=== PATIENT | female | born 1955 | race Caucasian/White ===

== ENCOUNTER 2017-01-05 13:02 | Day surgery (SDC) | payer OTHER ==
[~2017-01-05] VITALS: Ht 152.4 cm; Wt 81.3 kg
[~2017-01-05 13:02] MED LIST: ADULT LOW DOSE81 MG PO; ASPIRIN EC81 MG PO; LEVOTHYROXINE100 MCG PO; LOVASTATIN40 MG PO; MELOXICAM15 MG PO
--- NOTE | 2017-01-05 15:34 | NUR ---
01/05/17 1534 Marilynn Alejandro 1528 - PT ARRIVED TO RECOVERY ROOM. PIV IN LEFT HAND, WNL, INFUSING LR. PT MAINTAINING OWN AIRWAY, RESPONDING TO QUESTIONS APPROPRIATLY, AND DENIES PAIN AND NAUSEA.
--- NOTE | 2017-02-13 07:48 | OR ---
[facility] [address], [place] [address] Signed DATE OF PROCEDURE: 01/05/17 PREOPERATIVE DIAGNOSES History of rectal bleeding last in July 2016. No evidence of family history of colon cancer. POSTOPERATIVE DIAGNOSIS Scattered diverticulitis, sigmoid; otherwise, normal colon. PROCEDURE: Total colonoscopy to cecum. SURGEON: Domenica Anthony M.D. ANESTHESIA: Intravenous sedation: Fentanyl 100 mcg, Versed 6 mg. INDICATION This 61-year-old white woman is a patient of Dr. Koehler and had episodes of rectal bleeding in 2015. She was a no-show for follow-up colonoscopy plan. She was generally symptom-free, though she had bleeding several months ago in July. This was not associated with pain. She has no family history of colon cancer. She is admitted at this time to undergo colonoscopy on the basis of her episodic rectal bleeding. Understands the risks of bleeding, infection, and perforation related to colonoscopy. Understands that she wished to proceed. FINDINGS The prep was good. Complete colonoscopy was undertaken to the cecum. There were a few scattered diverticula, but no other abnormalities and certainly no sign of colitis, cancer, polyps, or bleeding itself. PROCEDURE IN DETAIL The patient was brought to the endoscopy suite and placed in the lateral decubitus position. Given intravenous sedation to the point of slurred speech and nystagmus. Digital rectal examination was normal. An Olympus video colonoscope was passed in the rectum and manipulated throughout the colon, ultimately intubating the cecum itself. The ileocecal valve and appendiceal orifice were normal. The scope was withdrawn from that point. Examination throughout was undertaken showing no sign of abnormality other than a few diverticula of the left colon. Retroflexed view in the rectum confirmed hypertrophied anal papilla, which would not account for the bleed ing she has had. The scope was removed and the patient was taken to recovery room in good condition. Electronically Signed By: DOMENICA ANTHONY MD 02/13/17 0748 PATIENT NAME: MARICEL GEORGE OPERATIVE REPORT DATE OF : 59 PHYSICIAN: DOMENICA ANTHONY MD REPORT #: [id number] REPORT IS CONFIDENTIAL AND NOT TO BE RELEASED WITHOUT AUTHORIZATION [facility] [address], [place] [address] Signed CONCLUDING DIAGNOSES A few scattered diverticula and asymptomatic anal hypertrophied anal papilla. PLAN Recommend repeat colonoscopy in 10 years. Recommend high-fiber diet. She will return to the ongoing care of Dr. Koehler. MD CASSANDRA Dickens/Ariel /[id number] cc: Pool Koehler DO Electronically Signed By: DOMENICA ANTHONY MD 02/13/17 0748 PATIENT NAME: MARICEL GEORGE OPERATIVE REPORT DATE OF : 59 PHYSICIAN: DOMENICA ANTHONY MD REPORT #: [id number] REPORT IS CONFIDENTIAL AND NOT TO BE RELEASED WITHOUT AUTHORIZATION
== END 2017-01-05 16:00 | disposition home or self-care (01) ==
LOC: OPS 13:02 → DS 14:00 → OPS 14:00
PROVIDERS: Surgery
PROC: 0DJD8ZZ Inspection of Lower Intestinal Tract, Via Natural or Artificial Opening Endoscopic (ICD-10-PCS; principal; 2017-01-05 14:00)
DX: Z12.11 Encounter for screening for malignant neoplasm of colon (principal); K57.32 Diverticulitis of large intestine without perforation or abscess without bleeding; J45.909 Unspecified asthma, uncomplicated; E03.9 Hypothyroidism, unspecified; Z88.2 Allergy status to sulfonamides; Z98.890 Other specified postprocedural states
CPT/HCPCS: 99152; 99153; J2250; J3010

== ENCOUNTER 2017-11-22 21:56 | Emergency (ER) | payer BC, OTHER ==
[~2017-11-22] VITALS: Ht 152.4 cm; Wt 81.3 kg
[2017-11-22] MEDS ORDERED: ULTRAM50 MG PO (22:12)
[2017-11-22] MEDS ORDERED: CYCLOBENZAPRINE10 MG (22:13)
[2017-11-22] MEDS ORDERED: NORCO 5-325 TA1 EACH PO (23:17)
== END 2017-11-22 23:28 | disposition home or self-care (01) ==
LOC: ED 21:56
DX: S83.91XA Sprain of unspecified site of right knee, initial encounter (principal); S30.0XXA Contusion of lower back and pelvis, initial encounter; E03.9 Hypothyroidism, unspecified; Z88.2 Allergy status to sulfonamides; Z79.899 Other long term (current) drug therapy; Z79.82 Long term (current) use of aspirin; V80.010A Animal-rider injured by fall from or being thrown from horse in noncollision accident, initial encounter
CPT/HCPCS: 73502; 73560; 99283

== ENCOUNTER 2021-05-14 04:53 | Emergency (ER) | payer OTHER ==
[~2021-05-14] VITALS: Ht 152.4 cm; Wt 81.3 kg
[~2021-05-14 04:53] MED LIST changes: +CYCLOBENZAPRINE10 MG; +NORCO 5-325 TA1 EACH PO; +ULTRAM50 MG PO
[2021-05-14] MEDS ORDERED: CYCLOBENZAPRINE10 MG PO (05:51)
--- NOTE | 2021-05-16 18:51 | EKG ---
[facility] [address] [facility] [place] [address] Signed Normal sinus rhythm Normal ECG When compared with ECG of 16-APR-2016 00:48, No significant change was found Confirmed by NO ODOM MD ([id number]) on 05/16/2021 6:51:26 PM Electronically Signed By: NO ODOM MD 05/16/211850 PATIENT NAME: MARICEL GEORGE BUSTAMANTE Electrocardiogram DATE OF : 59 PHYSICIAN: NO ODOM MD REPORT #: [id number] REPORT IS CONFIDENTIAL AND NOT TO BE RELEASED WITHOUT AUTHORIZATION
== END 2021-05-14 06:23 | disposition home or self-care (01) ==
LOC: ED 04:53
DX: R07.89 Other chest pain (principal); E86.0 Dehydration; E03.9 Hypothyroidism, unspecified; M19.90 Unspecified osteoarthritis, unspecified site; E78.00 Pure hypercholesterolemia, unspecified; I10 Essential (primary) hypertension; Z88.2 Allergy status to sulfonamides; Z79.82 Long term (current) use of aspirin
CPT/HCPCS: 36415; 71045; 80053; 83735; 84484; 85025; 85610; 93005; 93010; 99285-25; J7030

== ENCOUNTER 2024-08-31 08:47 | Emergency (ER) | payer OTHER ==
[~2024-08-31] VITALS: Ht 152.4 cm; Wt 83.1 kg
[~2024-08-31 08:47] MED LIST changes: +CYCLOBENZAPRINE10 MG PO
[2024-08-31] MEDS ORDERED: LISINOPRIL5 MG PO (09:02)
[2024-08-31] MEDS ORDERED: FINASTERIDE5 MG PO (09:02)
[2024-08-31] MEDS ORDERED: GABAPENTIN300 MG PO (09:02)
[2024-08-31 10:21] LABS: BASOPHILS 0.2 % (0.1-1.2); EOSINOPHILS 0.9 % (0.7-5.8); HEMATOCRIT 35.5 % (34.1-44.9); HEMOGLOBIN 11.7 g/dL (11.2-15.7); LYMPHOCYTES 14.2 % (19.3-51.7); MCH 30.2 PG (25.6-32.2); MCV 91.5 fL (79.4-94.8); MONOCYTES 9.6 % (4.7-12.5); NEUTROPHILS 74.1 % (34.0-71.1); PLATELET COUNT 297 K/uL (182-369); RBC 3.88 M/uL (3.93-5.22)
[2024-08-31 10:39] LABS: ALBUMIN 3.3 g/dL (3.4-5.0); ALBUMIN/GLOBULIN RATIO 0.92 (1.1-2.4); ANION GAP 9.9 (7-21); BILIRUBIN, TOTAL 0.6 mg/dL (0.2-1.0); BUN/CREATININE RATIO 16.66 (6.0-28.6); CALCIUM 8.9 mg/dL (8.5-10.1); CREATININE, SERUM 1.56 mg/dL (0.55-1.02); POTASSIUM 4.9 mmol/L (3.5-5.1); PROTEIN, TOTAL 6.9 g/dL (6.4-8.2)
[2024-08-31 11:26] LABS: BILIRUBIN, URINE NEGATIVE (negative); BLOOD/HGB, URINE NEGATIVE (Negative); KETONE, URINE NEGATIVE (Negative); LEUK ESTERASE, URINE NEGATIVE (negative); NITRITE, URINE NEGATIVE (negative)
[2024-08-31] MEDS ORDERED: PERCOCET 5-3251 EACH PO (12:25)
[2024-08-31] MEDS ORDERED: ONDANSETRON 4 MG TAB ODT SL ONE (12:30)
[2024-08-31] MEDS ORDERED: OXYCODONE HCL 5 MG TAB PO ONE (12:30)
[2024-08-31 12:45] VITALS: BP 141/7
== END 2024-08-31 12:45 | disposition home or self-care (01) ==
LOC: ED 08:47
PROVIDERS: Emergency Medicine
DX: S22.32XA Fracture of one rib, left side, initial encounter for closed fracture (principal); I10 Essential (primary) hypertension; M19.90 Unspecified osteoarthritis, unspecified site; Z88.2 Allergy status to sulfonamides; Z79.82 Long term (current) use of aspirin; W10.9XXA Fall (on) (from) unspecified stairs and steps, initial encounter
CPT/HCPCS: 36415; 70450; 71250; 73706; 80053; 81003; 82550; 85025; 86850; 86900; 86901; 99284-25; A9270; Q9967

== ENCOUNTER 2024-11-14 22:30 | Emergency (ER) | payer OTHER ==
[~2024-11-14] VITALS: Ht 152.4 cm; Wt 83.1 kg
[~2024-11-14 22:30] MED LIST changes: +FINASTERIDE5 MG PO; +GABAPENTIN300 MG PO; +LISINOPRIL5 MG PO; +PERCOCET 5-3251 EACH PO
[2024-11-14] MEDS ORDERED: MORPHINE SULFATE 4 MG/ML VIAL IV ONE (23:00)
[2024-11-14 23:14] LABS: BASOPHILS 0.3 % (0.1-1.2); EOSINOPHILS 2.2 % (0.7-5.8); LYMPHOCYTES 16.7 % (19.3-51.7); MCH 30.1 PG (25.6-32.2); MCHC 33.2 g/dL (32.2-35.5); MCV 90.7 fL (79.4-94.8); MONOCYTES 9.6 % (4.7-12.5); NEUTROPHILS 70.9 % (34.0-71.1); RBC 3.32 M/uL (3.93-5.22)
[2024-11-14 23:30] LABS: ALT (SGPT) 16.0 U/L (14-59); AST (SGOT) 11.0 U/L (15-37); GLOMERULAR FILTRATION RATE,EST 34.0 mL/min (>60); PROTEIN, TOTAL 6.9 g/dL (6.4-8.2); UREA NITROGEN 34.0 mg/dL (7-18)
[2024-11-15] MEDS ORDERED: AMOX TR-K CLV1 EAC1 PO (00:50)
[2024-11-15] MEDS ORDERED: HYDROCODON-ACE1 EA10 PO (00:50)
[2024-11-15] MEDS ORDERED: HYDROCODONE BIT/ACETAMINOPHEN 5/325 MG 1 TAB HOME.PACK PO ONE (01:00)
[2024-11-15] MEDS ORDERED: AMOXICILLIN/CLAVULANATE K 875 MG HOME.PACK PO ONE (01:00)
[2024-11-15 01:07] VITALS: BP 146/51
== END 2024-11-15 01:08 | disposition home or self-care (01) ==
LOC: ED 22:30
PROVIDERS: Family Medicine
DX: S70.11XA Contusion of right thigh, initial encounter (principal); V80.010A Animal-rider injured by fall from or being thrown from horse in noncollision accident, initial encounter; Y93.52 Activity, horseback riding; I10 Essential (primary) hypertension; E03.9 Hypothyroidism, unspecified; Z88.2 Allergy status to sulfonamides; Z79.899 Other long term (current) drug therapy; Z79.890 Hormone replacement therapy; Z79.82 Long term (current) use of aspirin
CPT/HCPCS: 36415; 71101; 72170; 73552; 73590; 80053; 85025; 93971; A9270; J2270; J2405